=== PATIENT | female | born 1945 | race Caucasian/White ===

== ENCOUNTER 2016-07-05 08:47 | Emergency (ER) | payer MEDICARE, OTHER ==
[~2016-07-05 08:47] MED LIST: AUGMENTIN 875-11 TAB PO; METOPROLOL TART25 MG; NO MEDICATIONS; NORCO 5/325 TAB1 TAB PO
[2016-07-05] MEDS ORDERED: ASPIR 8181 M1 PO (08:59)
[2016-07-05] MEDS ORDERED: TOPROL XL50 M1 PO (09:12)
[2016-07-05] MEDS ORDERED: ZESTORETIC 10-1 EAC1 PO (09:12)
[2016-07-05] MEDS ORDERED: NAPROSYN500 M1 PO (09:22)
[2016-07-05] MEDS ORDERED: FLONASE ALLERG9.9 ML (09:22)
[2016-07-05] MEDS ORDERED: TART CHERRY CA1 EACH PO (10:06)
[2016-07-05] MEDS ORDERED: [UNRECOGNIZED DRUG - OTHER] PO (10:07)
[2016-07-05] MEDS ORDERED: VITAMIN D32000 UNI3 PO (10:07)
[2016-07-05] MEDS ORDERED: VITAMIN E400 UNI4 PO (10:08)
[2016-07-05] MEDS ORDERED: POTASSIUM99 M4 PO (10:08)
[2016-07-05] MEDS ORDERED: GARLIC1 EAC1 PO (10:08)
[2016-07-05] MEDS ORDERED: [UNRECOGNIZED DRUG - OTHER] PO (10:08)
[2016-07-05] MEDS ORDERED: NORCO 5-325 TA1 EACH PO (10:15)
[2016-07-05] MEDS ORDERED: CYCLOBENZAPRINE10 M1 PO (10:15)
[2016-07-05] MEDS ORDERED: IBUPROFEN600 M1 PO (10:15)
== END 2016-07-05 10:29 ==
LOC: EDMED 08:47
DX: S39.012A Strain of muscle, fascia and tendon of lower back, initial encounter (principal); Z98.51 Tubal ligation status; Z79.82 Long term (current) use of aspirin; X50.1XXA Overexertion from prolonged static or awkward postures, initial encounter
CPT/HCPCS: J1885